=== PATIENT | male | born 2000 | race Caucasian/White ===

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

== ENCOUNTER 2025-02-12 09:05 | Outpatient (REF) | payer OTHER, SELFPAY ==
--- OUTSIDE RECORDS SUMMARY | 2025-02-12 09:08 | XMS_ITS | Clinical Summary ---
Author Organization [address] Address [address] [place] [phone] Phone Care Team Providers Care Second Ride Fare Collector Name Role Phone Unavailable Primary Care Provider Unavailabl e Social History Tobacco Use Types Packs/Day Years Used Date Smoking Tobacco: Never Assessed Sex and Gender Information Value Date Recorded Sex Assigned at Not on file Legal Sex Male 3:18 PM EDT Gender Identity Not on file Sexual Orientation Not on file Plan of Treatment Health Maintenance Due Date Last Done Comments IPV Vaccines (4 of 4 - 4-dose series) 2005 04/17/2002, 2001, 2001 Varicella Vaccines (2 of 2 - 2-dose childhood series) 2005 01/17/2002 HIV screening 2014 Hepatitis C screening 2019 HPV vaccine series (3 - Male 3-dose series) 09/19/2020 06/27/2020, 10/27/2018 Influenza vaccine 12/01/2024 Covid-19 vaccine series ( - season) 2025 DTaP/TDaP Vaccines (6 - Td or Tdap) 10/27/2028 10/27/2018, 04/17/2002, 2001, Additional history exists Tetanus adult (Td q 10,TDAP once) 10/27/2028 10/27/2018 RSV Immunization (1 - 1-dose 75+ series) 01/15/2076 Hepatitis B vaccine series Completed 07/14, 2001, 2001 MMR Vaccines Completed 01/17/2002 Pneumococcal Vaccine (2 - 49 years) Aged Out 01/17/2002, 2001, 2001 No longer eligible based on patient's age to complete this topic HIB Vaccines Completed 04/17/2002, 07/01, 2001, Additional history exists Meningococcal Vaccine Completed 06/27/2020, 019 Hepatitis A Vaccines Aged Out No long er eligible based on patient's age to complete this topic Meningococcal B Vaccine Aged Out No l onger eligible based on patient's age to complete this topic Rotavirus Vaccines Aged Out No longer eligible based on patient's age to complete this topic Insurance [facility] COVID TESTING on file
--- OUTSIDE RECORDS SUMMARY | 2025-02-12 09:08 | XMS_ITS | Encounter Summary ---
Author Organization [facility] Address [address] [place] [address] Care Team Providers Care Chair Caner Name Role Phone Chemo Delgadillo MD Unavailable Unavailable Kendra Acevedo Primary [facility] Encounter Details Date Type Department Care Team (Late st Contact Info) Description 06/23/2024 Orders Only [facility] [address] [place] [phone] Kendra Acevedo PA [address] [place] [address] Social History Tobacco Use Types Packs/Day Years Used Date Smoking Tobacco: Never Smokeless Tobacco: Never Alcohol Use Standard Drinks/Week Comments Never 0 (1 standard drink = 0.6 oz pur e alcohol) PHQ-2 Answer Date Recorded PHQ-2 Score 0 06/09/2024 PHQ-9 Answer Date Recorded PHQ-9 Score 0 06/09/2024 Sex and Gender Information Value Date Recorded Sex Assigned at Male 06/08/2024 2:39 PM EST Legal Sex Male 3:09 PM EDT Gender Identity Male 06/08/2024 2:39 PM EST Sexual Orientation Straight 06/08/2024 2: 39 PM EST documented as of this encounter Miscellaneous Notes * Result Encounter Note - Kendra Acevedo PA - 06/23/2024 7:33 PM EST Please inform patient that urine testing continued to show an elevation in urobilinogen. I have ordered a few blood tests to further assess. * Result Encounter Note - Janeth Burch RN - 06/23/2024 7:33 PM EST Pt informed Pt scheduled for lab work documented in this encounter Plan of Treatment Upcoming Encounters Date Type Department Care Team (Late st Contact Info) Description 06/08/2025 2:30 PM EST Minor Procedure/Test [facility] Blood Draw Services [address] [place] [address] lab 06/15/2025 2:30 PM EST CPE - Comprehensive Physical Exam [facility] [place] [address] Kendra Acevedo PA [address] [place] [address] cpe documented as of this encounter Procedures Procedure Name Priority Date/Time Associated Diagnosis Comments URINALYSIS, DIP STICK/TABLET REAGENT; AUTOMATED W/O MICROSCOPY Routine 06/23/2024 7:33 PM EST Abnormal urinalysis documented in this encounter Results * (ABNORMAL) URINALYSIS, COMPLETEW/REFLEX TO CULTURE (06/23/2024 7:33 PM EST) Color (Urine) Dark Yellow(A) Yellow [facility] Clarity (Urine) Clear Clear [facility] Specific gravity (Urine) 1.021 1.005 - 1.030 [facility] pH (Urine) 6.5 5.0 - 8.0 [facility] Leukocytes (Urine) Negative Negative-Tr shirley DOT/uL [facility] Nitrite (Urine) Negative Negative [facility] Protein (Urine) Negative Negative mg/dL [facility] Glucose (Urine) Negative Negative mg/dL [facility] Ketones (Urine) Negative Negative mg/dL [facility] Urobilinogen (Urine) 1.0(H) 0.0 - 0.2 mg/dL [facility] Bilirubin (Urine) Negative Negative mg/dL [facility] Hemoglobin (Urine) Negative Negative mg/dL [facility] Leukocytes (Urine) 0-5 None Seen, 0-5 /HPF [facility] Erythrocytes (Urine) 0-2 0 - 2 /HPF [facility] Epithelial cells (Urine) None Seen /HPF [facility] Bacteria (Urine) None Seen /HPF [facility] Hyaline casts (Urine) None seen 0 - 5 /LPF [facility] 06/23/2024 7:33 PM EST 06/23/2024 7:34 PM EST Narrative [facility] - 06/23/2024 8:54 PM EST Testing performed at [facility], [address] [place] [address], , Market Risk Analyst: Janine Langston MD CL#[id number] No Culture Indicated. [facility] Fin al Result [facility] [address] [place] [address], documented in this encounter Visit Diagnoses Diagnosis Abnormal urinalysis Other nonspecific finding on examination of urine documented in this encounter Care Teams Chair Caner Relationship Specialty Start Date End Date Chemo Delgadillo MD PCP - Backup PCP Family Medicine 06/02/23 Kendra Acevedo PA [address] [place] [id number] PCP - General Family Medicine 01/06/24 documented as of this encounter
--- OUTSIDE RECORDS SUMMARY | 2025-02-12 09:08 | XMS_ITS | Clinical Summary ---
Author Organization [facility] Address [address] [place] [address] Care Team Providers Care Business Development Name Role Phone Unavailable Primary Care Provider Unavailabl e Source Comments Please note that some or all of the patient's information could have additional privacy protections. State laws allow health care providers to render certain types of treatment to minors without parental consent. Please do not assume that this information can be shared solely by obtaining just the consent of the patient's parent/guardian. Please determine if all or part of the patient's care was rendered without parent/guardian involvement. And, if so, obtain the minor's consent prior to disclosure.[facility]'s Allergies Active Allergy Reactions Criticality Noted Date Comments Other (Environmental) 05/17/2019 Medications valACYclovir (VALTREX) 1000 MG tablet TAKE 1 TABLET BY MOUTH 3 TIMES A DAY FOR 7 DAYS 04/26/2020 Active predniSONE (DELTASONE) 20 MG tablet TAKE 3 TABLETS BY MOUTH EVERY DAY FOR 6 DAYS 04/26/2020 Active Active Problems Problem Noted Date Diagnosed Date Elevated blood pressure read ing without diagnosis of hypertension 12/09/2018 Excessive sodium intake 12/09/2018 Sleep apnea-like behavior 12/09/2018 Immunizations Immunization Administration Dates Next Due DTaP, Unspecified 04/17/2002, 2,2001,03/30 HPV 9 06/27/2020,10/27/2018 Hep B, Unspecified 2001,2001, 001 HiB, Unspecified 04/17/2002, 2,2001,03/30 IPV 04/17/2002,2001,2001 MMR 01/17/2002 Meningococcal Conjugate Sero groups ACWY (Polysaccharide)(MCV4P) 06/27/2020,10/27/2018 Meningococcal Serogroup B, OMV 10/27/2018 Meningococcal Serogroup B, Recombinant Pneumococcal Conjugate 7-Valent 01/17/2002,10/14,2001 Tdap 10/27/2018 Varicella 01/17/2002 Family History Medical History Relation Name Comments Asthma Brother Diabetes Father Heart disease Father valvular heart disease requiring valve replacement Sudden Father Asthma Maternal Aunt Depression Maternal Aunt Hyperlipidemia Maternal Grandfather Hypertension Maternal Grandfather Adult-o nset Diabetes Maternal Grandmother Thyroid disease Maternal Grandmother Cancer Mother melanoma Diabetes Paternal Grandfather Anesthesia problems Neg Hx Bleeding disorder Neg Hx Kidney disease Neg Hx Kidney transplant Neg Hx Relation Name Status Comments Brother Father Maternal Aunt Maternal Grandfather Maternal Grandmother Mother Paternal Grandfather Social History Tobacco Use Types Packs/Day Years Used Date Smoking Tobacco: Never Smokeless Tobacco: Never Alcohol Use Standard Drinks/Week Comments Not Asked 0 (1 standard drink = 0.6 oz pur e alcohol) Other Needs Answer Date Recorded Anything else about your child you'd like help w ith? Not on file 2023 Share good news about positive changes: Not on f ile 2023 Sex and Gender Information Value Date Recorded Sex Assigned at Male 10/28/2018 9:04 AM EDT Legal Sex Male 2:17 AM EST Gender Identity Male 10/28/2018 9:04 AM EDT Sexual Orientation Straight 10/28/2018 9: 05 AM EDT Last Filed Vital Signs Vital Sign Reading Time Taken Comments Blood Pressure 146/88 05/06/2020 10:39 AM EST Pulse 85 05/06/2020 10:34 AM EST Temperature 36.9 C (98.4 F) 06/27/2020 10:28 AM EST Respiratory Rate - - Oxygen Saturation - - Inhaled Oxygen Concentration - - Weight 79.1 kg (174 lb 6.1 oz) 05/06/2020 10:34 AM EST Height 179.7 cm (5' 10.75 ) 05/17/2019 9:[address] Body Mass Index 24.5 05/17/2019 9:05 AM EST Plan of Treatment Health Maintenance Due Date Last Done Comments ADOLESCENT HIV SCREENING 2014 COVID-19 Vaccine ( season) 2025 INFLUENZA (#1) 2025 DTaP/TDAP/TD VACCINES (6 - Td or Tdap) 10/27/2028 10/27/2018, 04/17/2002, 2001, Additional history exists NIRSEVIMAB VACCINES UNDER 8 MONTHS Aged Out No longer eligible based on patient's age to complete this topic Insurance HMO HMO
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
--- OUTSIDE RECORDS SUMMARY | 2025-02-12 09:08 | XMS_ITS ---
Author Name [facility] Organization Unknown Results Test Name/Text Value Interpretation Date Range Source RETIC # 0.1365 M/uL Normal 07/03/2024 0.0259 - 0.1464 [facility] RETIC % 2.65 % Above high normal 07/03/2024 0.6 - 2.4 [facility] GGT 14.0 U/L Normal 07/04/2024 8 - 61 [facility] LDH 173.0 U/L Normal 07/04/2024 135 - 225 [facility] GLUCOSE 83.0 mg/dL Normal 07/04/2024 65 - 99 [facility] HAPTOGLOBIN 241.0 mg/dL Above high normal 07/05/2024 43 - 21 2 [facility] BACTERIA None Seen Normal 06/24/2024 [facility] HYALINE CAST None seen Normal 06/24/2024 0 - 5 [facility] WHITE BLOOD CELL 0-5 Normal 06/24/2024 - [facility] SQUAMOUS EPTHELIAL None Seen Normal 06/24/2024 [facility] RED BLOOD CELLS 0-2 Normal 06/24/2024 0 - 2 [facility] CLARITY Clear Normal 06/24/2024 - [facility] LEUKOCYTES Negative Normal 06/24/2024 - [facility] PROTEIN Negative Normal 06/24/2024 - [facility] NITRITE Negative Normal 06/24/2024 - [facility] BLOOD Negative Normal 06/24/2024 - [facility] BILIRUBIN Negative Normal 06/24/2024 - [facility] SPECIFIC GRAVITY 1.021 Normal 06/24/2024 1.005 - 1.03 [facility] GLUCOSE Negative Normal 06/24/2024 - [facility] UROBILINOGEN 1.0 mg/dL Above high normal 06/24/2024 0 - 0.2 [facility] KETONE Negative Normal 06/24/2024 - [facility] COLOR Dark Yellow Abnormal 06/24/2024 - [facility] PH 6.5 Normal 06/24/2024 5 - 8 [facility] ANION GAP 13.0 Normal 06/17/2024 [facility] CALCULATED OSMO 272.0 mOsm/kg Normal 06/17/2024 253 - 285 [facility] A/G RATIO 2.0 Normal 06/17/2024 1 - 3 [facility] GLOBULIN 2.1 g/dl Normal 06/17/2024 1.4 - 4.8 [facility] BUN/CREAT RATIO 10.0 Normal 06/17/2024 6 - 25 [facility] egfr 128.0 Normal 06/17/2024 - [facility] CHLORIDE 104.0 mmol/L Normal 06/17/2024 96 - 108 [facility] POTASSIUM 4.1 mmol/L Normal 06/17/2024 3.3 - 5.3 [facility] SODIUM 143.0 mmol/L Normal 06/17/2024 133 - 145 [facility] ALKALINE PHOSPHATASE 63.0 U/L Normal 06/17/2024 40 - 130 [facility] CO2 26.0 mmol/L Normal 06/17/2024 22 - 32 [facility] BUN 8.0 mg/dL Normal 06/17/2024 6 - 20 [facility] ALT 16.0 U/L Normal 06/17/2024 4 - 41 [facility] LTH AST 18.0 U/L Normal 06/17/2024 4 - 40 [facility] CALCIUM 9.5 mg/dL Normal 06/17/2024 8.6 - 10.5 [facility] CREATININE 0.8 mg/dL Normal 06/17/2024 0.5 - 1.2 [facility] GLUCOSE 60.0 mg/dL Below low normal 06/17/2024 65 - 99 [facility] TOTAL PROTEIN 6.7 g/dL Normal 06/17/2024 6.2 - 8.2 [facility] TOTAL BILIRUBIN 0.5 mg/dL Normal 06/17/2024 0.1 - 1 [facility] ALBUMIN 4.6 g/dl Normal 06/17/2024 3.5 - 5.2 [facility] LDL 84.0 mg/dL Normal 06/17/2024 0 - 100 [facility] VLDL 25.0 mg/dL Normal 06/17/2024 5 - 40 [facility] CHOL/HDL RATIO 5.0 Normal 06/17/2024 [facility] Non-HDL CHOLESTEROL 109.0 mg/dl Normal 06/17/2024 0 - 130 [facility] CHOLESTEROL 136.0 mg/dL Normal 06/17/2024 0 - 199 [facility] HDL 27.0 mg/dL Below low normal 06/17/2024 40 - 80 [facility] TRIGLYCERIDES 124.0 mg/dL Normal 06/17/2024 0 - 150 [facility] HEPATITIS C ANTIBODY NON-REACTIVE Normal 06/17/2024 - [facility] HIV AG/AB 4TH GENERATION NON-REACTIVE Normal 06/17/2024 - [facility] TSH 0.91 uIU/ml Normal 06/17/2024 0.5 - 4.8 [facility] Hemoglobin A1C 4.4 %A1C Normal 06/17/2024 4.3 - 6.1 [facility] HYALINE CAST None seen Normal 06/17/2024 0 - 5 [facility] RED BLOOD CELLS 0-2 Normal 06/17/2024 0 - 2 [facility] WHITE BLOOD CELL 0-5 Normal 06/17/2024 - [facility] BACTERIA None Seen Normal 06/17/2024 [facility] SQUAMOUS EPTHELIAL None Seen Normal 06/17/2024 [facility] PH 5.5 Normal 06/17/2024 5 - 8 [facility] COLOR Dark Yellow Abnormal 06/17/2024 - [facility] NITRITE Negative Normal 06/17/2024 - [facility] KETONE Trace Abnormal 06/17/2024 - [facility] BILIRUBIN Negative Normal 06/17/2024 - [facility] LEUKOCYTES Negative Normal 06/17/2024 - [facility] GLUCOSE Negative Normal 06/17/2024 - [facility] BLOOD Negative Normal 06/17/2024 - [facility] SPECIFIC GRAVITY 1.032 Above high normal 06/17/2024 1 .005 - 1.03 [facility] UROBILINOGEN 1.0 mg/dL Above high normal 06/17/2024 0 - 0.2 [facility] PROTEIN Trace Abnormal 06/17/2024 - [facility] CLARITY Turbid Abnormal 06/17/2024 - [facility] HEMOGLOBIN 15.5 g/dL Normal 06/17/2024 12.7 - 17.5 [facility] NRBC# 0.0 K/uL Normal 06/17/2024 [facility] MCV 92.0 fL Normal 06/17/2024 80 - 100 [facility] LYMPH% 23.1 % Normal 06/17/2024 [facility] WBC 5.4 K/uL Normal 06/17/2024 3.6 - 11 [facility] NEUT% 65.4 % Normal 06/17/2024 [facility] RDW-CV 11.9 % Below low normal 06/17/2024 12 - 16.1 [facility] LYMPH# 1.24 K/uL Normal 06/17/2024 0.8 - 4.5 [facility] MCHC 34.0 g/dl Normal 06/17/2024 31 - 35 [facility] MCH 31.0 pg Normal 06/17/2024 27 - 32 [facility] NRBC% 0.0 /100WBC Normal 06/17/2024 0 - 1 [facility] PLT 254.0 K/uL Normal 06/17/2024 150 - 450 [facility] NEUT# 3.51 K/uL Normal 06/17/2024 1.5 - 7.8 [facility] HEMATOCRIT 45.3 % Normal 06/17/2024 38.5 - 52 [facility] MPV 10.7 fL Normal 06/17/2024 9 - 13 [facility] RBC 4.9 M/uL Normal 06/17/2024 4.2 - 6.1 [facility] BASO% 0.6 % Normal 06/17/2024 [facility] MONO# 0.4 K/uL Normal 06/17/2024 0.2 - 1 [facility] MONO% 7.5 % Normal 06/17/2024 [facility] EOS% 3.2 % Normal 06/17/2024 [facility] Encounters Encounter Type Encounter Reason Primary Diagnosis Location Date Ambulatory [facility] 11/01 [facility] 10/31 [facility] 10/31 [facility] 10/31 [facility] 01/2025 [facility] 07/2024 [facility] 06/04 [facility] 06[facility]03 [facility] 10/2024 Care Team Organization Name Specialty Phone Email Start Date End Da te [facility] BANDAR DOMINGO Primary Care 08/04/2024 [facility] 07/12 [facility] 06/09/2024
== END 2025-02-12 09:06 | disposition home or self-care (01) ==
LOC: CF 09:05
DX: Z13.89 Encounter for screening for other disorder (principal)

== ENCOUNTER 2025-03-22 09:08 | Outpatient (REF) | payer OTHER, SELFPAY ==
--- NOTE | ~2025-03-22 | US_ITS ---
PROCEDURE: US GUIDED FINE NEEDLE ASPIRATION CLINICAL INFORMATION: Left supraclavicular lymphadenopathy, for fine-needle aspiration. COMPARISON: Outside ultrasound dated 11/13/2024 TECHNIQUE/FINDINGS: Using ultrasound guidance, an enlarged left subcutaneous supraclavicular lymph node measuring 4.5 x 3.7 x 2.8 cm (previously reported at 5.3 x 2.6 x 4.6 cm on 11/13/2024) was localized. Overlying skin was marked, prepped and draped in sterile fashion. Skin and subcutaneous tissues were anesthetized with 1% lidocaine. Subsequently, a 25-gauge needle was passed into the lymph node using direct sonographic visualization, and 4 FNA passes were obtained. Aspirate material was transferred into CytoLyt, as well as into material for flow cytometry. The patient tolerated the procedure well. There were no immediate complications. US/US guided fine needle asp IMPRESSION: Successful fine-needle aspiration of an enlarged left supraclavicular lymph node. No immediate complication. Electronically signed by: Darwin Bobo MD 03/22/2025 01:54 PM [facility]
[2025-03-22] MEDS: Lidocaine HCl 1 % MPF 5 ML VIAL SUBCUT (11:17)
--- OUTSIDE RECORDS SUMMARY | 2025-03-22 11:20 | XMS_ITS | Clinical Summary ---
Author Organization [facility] Address [address] [place] [id number] Phone Care Team Providers [employer] Name Role Phone Unavailable Primary Care Provider [...] 3-dose series) 09/19/2020 06/27/2020, 10/27/2018 Meningococcal B Vaccine (2 of 2 - Bexsero SCDM 2-dose series) 10/25/2020 06/27/2020, 10/27/2018 Influenza vaccine 12/01/2024 Covid-19 vaccine series (1 - 2024- season) 2025 DTaP/TDaP Vaccines (6 - Td [...] patient's age to complete this topic Insurance [facility] COVID TESTING on file
== END 2025-03-22 09:09 | disposition home or self-care (01) ==
LOC: HO.US 09:08
PROVIDERS: Visit Provider Family Medicine
DX: R59.0 Localized enlarged lymph nodes (principal)
CPT/HCPCS: 10005; 88173; 88184; 88185; 88305; J2003

== ENCOUNTER → 2025-03-22 10:15 | Outpatient (BNV) | payer OTHER, SELFPAY | PROVIDERS: Visit Provider Radiology Diagnostic Radiology | DX: R59.0 Localized enlarged lymph nodes (principal) | CPT/HCPCS: 10005 ==